=== PATIENT | male | born 1930 | race Caucasian/White ===

== ENCOUNTER 2017-03-08 08:09 | Day surgery (SDC) | payer MEDICARE ==
[2017-03-08] MEDS ORDERED: Sodium Chloride 0.9% 20 ML ONE (10:35)
[2017-03-08] MEDS ORDERED: cefTRIAXone\\ROCEPHIN 2 GM in Sodium Chloride 0.9% 100 ML IVPB SCH (10:45)
--- NOTE | 2017-03-08 10:50 | SPC ---
ULTRASOUND AND FLUOROSCOPIC GUIDED PICC LINE PLACEMENT: HISTORY: Need for long-term IV access. COMPARISON: None. FINDINGS: The patient was brought to the fluoroscopy suite. All questions were answered. The left arm was prepped and draped in normal sterile fashion. The left basilic vein was accessed wi th a micropuncture set. The wire was placed with the tip of the wire in the IVC to confirm venous ac cess. Over the wire through a peelaway sheath, a 50 cm single lumen PICC was placed with the tip at the cavoatrial juntion The patient tolerated the procedure well. No complication. IMPRESSION: Technically successful PICC line placement. FLUORO TIME: 0.3 minutes. POS: [facility]
[2017-03-08 11:12] VITALS: BP 130/63; TEMP 98
[2017-03-08] MEDS ORDERED: Heparin 1,000 UNITS/ML VIAL ONE (17:30)
== END 2017-03-08 11:25 | disposition home or self-care (01) ==
LOC: SPEC 08:09 → ONC/OP 11:25
PROVIDERS: ATTEND Internal Medicine Infectious Disease
PROC: 02HV33Z Insertion of Infusion Device into Superior Vena Cava, Percutaneous Approach (ICD-10-PCS; principal; 2017-03-08)
PROC: B518ZZA Fluoroscopy of Superior Vena Cava, Guidance (ICD-10-PCS; 2017-03-08)
PROC: B548ZZA Ultrasonography of Superior Vena Cava, Guidance (ICD-10-PCS; 2017-03-08)
DX: M86.171 Other acute osteomyelitis, right ankle and foot (principal); Z88.0 Allergy status to penicillin; Z88.7 Allergy status to serum and vaccine; Z88.8 Allergy status to other drugs, medicaments and biological substances
CPT/HCPCS: 36569; 96365; A4216; C1751; J0696; J1642; J1644; J7050